=== PATIENT | female | born 1960 | race African-American/Black ===

== ENCOUNTER 2019-04-12 17:31 | Inpatient (IN) | payer BC ==
[~2019-04-12] VITALS: Ht 393.7 cm; Wt 114.3 kg
[2019-04-12] MEDS ORDERED: LABETALOL 5MG/ML SYR 20 MG/4 ML SYRINGE IV ONE (21:45)
[2019-04-12 21:54] LABS: BASOPHILS % 1.2 % (0.0-2.0); HEMATOCRIT. 36.7 % (36.0-48.0); HEMOGLOBIN. 11.9 g/dL (12.0-16.0); LYMPHOCYTES % 28.5 % (20.0-50.0); MEAN CORPUSCULAR VOLUME 86.2 fL (81.0-99.0); MEAN PLATELET VOLUME 7.8 fl (7.4-10.4); MONOCYTES % 6.4 % (2.0-8.0); NEUTROPHILS % 62.9 % (40.0-76.0); PLATELET 302 x1000/uL (130-400); RED BLOOD CELL COUNT 4.26 mill/uL (4.2-5.4); RED CELL DISTRIBUTION WIDTH 13.6 % (11.6-14.6)
[2019-04-12 21:59] LABS: CHLORIDE 106 mEq/L (98-107)
[2019-04-12] MEDS ORDERED: ONDANSETRON HCL 4MG/2ML INJ IV ONE (22:00)
[2019-04-12] MEDS ORDERED: MORPHINE SULFATE 4 MG/ML CPJ (NOT FOR IM USE) IV ONE (22:00)
[2019-04-12] MEDS ORDERED: NITROGLYCERIN OINT 1GM/INCH UDPKT TD ONE (22:00)
[2019-04-12 22:02] LABS: PARTIAL THROMBOPLASTIN TIME 28.6 sec (23.4-31.0); PROTHROMBIN TIME 10.2 sec (9.6-11.0)
[2019-04-12 22:03] LABS: ETHANOL BLOOD < 10 mg/dL
[2019-04-12] MEDS ORDERED: ASPIRIN 81MG TABLET PO ONE (23:45)
[2019-04-13] MEDS ORDERED: TRAMADOL 50MG TABLET PO ONE (00:15)
[2019-04-13 01:00] VITALS: BP 151/91
[2019-04-13] MEDS ORDERED: TRAMADOL 50MG TABLET PO PRN (01:45)
[2019-04-13] MEDS ORDERED: MAGNESIUM/ALUMINUM HYDROXIDE/SIMETHICONE 30ML UDC PO PRN (01:45)
[2019-04-13] MEDS ORDERED: CLONIDINE 0.1MG TABLET PO PRN (01:45)
[2019-04-13] MEDS ORDERED: AMLO10TA80 PO (01:54)
[2019-04-13 04:00] VITALS: BP 121/75
[2019-04-13 07:46] LABS: BASOPHILS % 0.6 % (0.0-2.0); EOSINOPHILS % 2.4 % (0.0-5.0); HEMATOCRIT. 33.1 % (36.0-48.0); HEMOGLOBIN. 10.9 g/dL (12.0-16.0); LYMPHOCYTES % 33.9 % (20.0-50.0); MEAN CORPUSCULAR HEMOGLOBIN 28.4 pg (28.0-32.0); MEAN CORPUSCULAR VOLUME 86.4 fL (81.0-99.0); MEAN PLATELET VOLUME 8.2 fl (7.4-10.4); NEUTROPHILS % 54.1 % (40.0-76.0); PLATELET 288 x1000/uL (130-400); RED BLOOD CELL COUNT 3.83 mill/uL (4.2-5.4); RED CELL DISTRIBUTION WIDTH 13.4 % (11.6-14.6)
[2019-04-13 07:52] LABS: CHLORIDE 107 mEq/L (98-107)
[2019-04-13 08:00] VITALS: BP 113/57
[2019-04-13 08:08] LABS: CREATINE KINASE 153 IU/L (26-192); LDL CHOLESTEROL 74 mg/dL (5-100)
[2019-04-13 08:09] LABS: HDL CHOLESTEROL 54 mg/dL (40-59)
[2019-04-13 08:11] LABS: CREATINE KINASE MB FRACTION 1.8 ng/mL (0.5-3.6)
[2019-04-13] MEDS: PANTOPRAZOLE 40MG DR TABLET PO SCH (08:55)
[2019-04-13] MEDS: ASPIRIN 81MG TABLET PO SCH (08:56)
[2019-04-13] MEDS: AMLODIPINE 10MG TABLET PO SCH (08:56)
[2019-04-13 12:00] VITALS: BP 126/70
[2019-04-13 15:28] LABS: CREATINE KINASE 154 IU/L (26-192)
[2019-04-13 15:29] LABS: CREATINE KINASE MB FRACTION 1.4 ng/mL (0.5-3.6)
[2019-04-13 16:00] VITALS: BP 123/70
[2019-04-13] MEDS ORDERED: LEVOFLOXACIN 500MG PREMIX 100 ML IV SCH (16:00)
[2019-04-13] MEDS: LORATADINE 10MG TABLET PO SCH (17:36)
[2019-04-13 19:03] LABS: *AMPHETAMINES SCREEN URINE NEGATIVE (NEGATIVE); *BENZODIAZEPINES SCREEN URINE NEGATIVE (NEGATIVE); *COCAINE SCREEN URINE NEGATIVE (NEGATIVE); METHADONE URINE SCREEN NEGATIVE (NEGATIVE)
[2019-04-13 19:04] LABS: *BARBITURATES SCREEN URINE NEGATIVE (NEGATIVE); CANNABINOID URINE SCREEN NEGATIVE (NEGATIVE); OPIATES URINE SCREEN NEGATIVE (NEGATIVE); PHENCYCLIDINE URINE SCREEN NEGATIVE (NEGATIVE)
[2019-04-13] MEDS: FLUTICASONE PROPIONATE 50MCG/SPRAY BOTTLE BOTHNSTRLS SCH (19:36)
[2019-04-13 20:00] VITALS: BP 128/62
[2019-04-14] VITALS: BP 136/72
[2019-04-14 00:01] LABS: CREATINE KINASE 143 IU/L (26-192)
[2019-04-14 00:03] LABS: CREATINE KINASE MB FRACTION 1.5 ng/mL (0.5-3.6)
[2019-04-14 04:00] VITALS: BP 133/71
[2019-04-14 07:17] LABS: HEMATOCRIT 35.4 % (36.0-48.0); HEMOGLOBIN 11.4 g/dL (12.0-16.0); MEAN CORPUSCULAR HEMOGLOBIN 28.1 pg (28.0-32.0); MEAN CORPUSCULAR VOLUME 87.3 fL (81.0-99.0); PLATELET 308 x1000/uL (130-400); RED BLOOD CELL COUNT 4.06 mill/uL (4.2-5.4); RED CELL DISTRIBUTION WIDTH 13.9 % (11.6-14.6)
[2019-04-14 07:31] LABS: CHLORIDE 105 mEq/L (98-107)
[2019-04-14 08:00] VITALS: BP 135/76
[2019-04-14] MEDS: ASPIRIN 81MG TABLET PO SCH (09:09)
[2019-04-14] MEDS: LORATADINE 10MG TABLET PO SCH (09:09)
[2019-04-14] MEDS: AMLODIPINE 10MG TABLET PO SCH (09:09)
[2019-04-14] MEDS: FLUTICASONE PROPIONATE 50MCG/SPRAY BOTTLE BOTHNSTRLS SCH (09:10)
[2019-04-14] MEDS: PANTOPRAZOLE 40MG DR TABLET PO SCH (09:10)
[2019-04-14 12:00] VITALS: BP 113/57
[2019-04-14 13:29] VITALS: BP 117/70
[2019-04-14 16:00] VITALS: BP 114/70
[2019-04-15] MEDS ORDERED: FAMOTIDINE 20MG TABLET PO SCH (09:00)
== END 2019-04-14 16:25 | disposition home or self-care (01) | DRG 392 ==
LOC: ER 17:31 → 7WST 22:32 → EDBEDREQ 22:38 → EDBEDREQTM 22:38 → ENRESERV 22:51
PROVIDERS: ADMIT Internal Medicine; ATTEND Internal Medicine
PROC: 5A09357 Assistance with Respiratory Ventilation, Less than 24 Consecutive Hours, Continuous Positive Airway Pressure (ICD-10-PCS; principal; 2019-04-13)
PROC: 5A09357 Assistance with Respiratory Ventilation, Less than 24 Consecutive Hours, Continuous Positive Airway Pressure (ICD-10-PCS; 2019-04-14)
DX: K21.9 Gastro-esophageal reflux disease without esophagitis (principal); I10 Essential (primary) hypertension; J06.9 Acute upper respiratory infection, unspecified; D64.9 Anemia, unspecified; R07.89 Other chest pain; E66.9 Obesity, unspecified; I67.1 Cerebral aneurysm, nonruptured; Z86.79 Personal history of other diseases of the circulatory system; Z88.9 Allergy status to unspecified drugs, medicaments and biological substances; Z98.891 History of uterine scar from previous surgery
CPT/HCPCS: 36415; 70486; 71045; 80048; 80061; 80305; 80320; 82550; 82553; 83880; 84439; 84443; 84484; 85027; 93005; 93306; 99291; J1956; J7050; G0480